=== PATIENT | female | born 1985 | race Caucasian/White ===

== ENCOUNTER 2018-12-23 20:06 | Inpatient (IN) | payer OTHER ==
[~2018-12-23] VITALS: Ht 170.2 cm; Wt 74.0 kg
[2018-12-23 21:58] LABS: BASOPHILS % (AUTO) 0.5 % (0.0-2.0); HEMOGLOBIN 13.9 g/dL (12.0-16.0); LYMPHOCYTES # (AUTO) 1.5 K/uL (1.0-4.8); MONOCYTES # (AUTO) 0.7 K/uL (0.1-1.0); RED BLOOD CELL COUNT(AUTO) 4.25 MIL/uL (4.00-5.20)
[2018-12-23 22:01] LABS: EOSINOPHILS % (AUTO) 2.8 % (1.0-6.0); HEMATOCRIT 41.1 % (36-46); LYMPHOCYTES % (AUTO) 16.5 % (22.0-44.0); MEAN CORPUSCULAR HEMOGLOBIN 32.7 pg (26.0-34.0); MEAN CORPUSCULAR HGB CONC 33.8 G/dL (31.0-37.0); MEAN CORPUSCULAR VOLUME 97 fL (80-100); MONOCYTES % (AUTO) 7.9 % (2.0-9.0); NEUTROPHILS # (AUTO) 6.5 K/uL (1.8-7.7); NEUTROPHILS % (AUTO) 72.3 % (40.0-70.0)
[2018-12-23 22:14] LABS: CARBON DIOXIDE 26 mmol/L (22-29); CHLORIDE 105 mmol/L (98-107); POTASSIUM 4.4 mmol/L (3.5-5.1); SODIUM SERUM 141 mmol/L (136-145)
[2018-12-23 22:15] LABS: ANION GAP 10 mmol/L (8-16); CALCIUM, TOTAL 8.6 mg/dL (8.8-10.5); CREATININE 0.75 mg/dL (0.60-1.30); GLOMERULAR FILTR. RATE CALC > 60 mL/min (>60); GLUCOSE,RANDOM 104 mg/dL (70-110); UREA NITROGEN, BLOOD 7 mg/dL (7-18)
[2018-12-23 22:22] LABS: ALANINE AMINOTRANSFERASE 90 U/L (12-78); ALBUMIN 3.8 g/dL (3.4-5.0); ALKALINE PHOSPHATASE 63 U/L (46-116); ASPARTATE AMINOTRANSFERASE 97 U/L (15-37); BILIRUBIN,TOTAL 0.4 mg/dL (0.1-1.0); HCG,QUANTITATIVE < 1 mIU/mL (0-6); TOTAL PROTEIN, SERUM 7.6 g/dL (6.4-8.2)
[2018-12-23] MEDS ORDERED: IBUPROFEN 600 MG TABLET PO ONE (23:00)
[2018-12-23] MEDS ORDERED: HALOPERIDOL 5 MG TABLET PO PRN (23:00)
[2018-12-23 23:08] LABS: PLATELET COUNT (AUTO) 229 K/uL (150-450)
[2018-12-23 23:27] LABS: AMPHET/METH SCREEN,URINE NEGATIVE (NEGATIVE); BARBITURATE SCREEN, URINE NEGATIVE (NEGATIVE); BENZODIAZEPINES SCREEN,URINE POSITIVE (NEGATIVE); CANNABINOID SCREEN,URINE POSITIVE (NEGATIVE); COCAINE SCREEN,URINE POSITIVE (NEGATIVE); METHADONE SCREEN, URINE NEGATIVE (NEGATIVE); OPIATE SCREEN,URINE NEGATIVE (NEGATIVE)
[2018-12-23 23:31] LABS: PHENCYCLIDINE SCREEN,URINE NEGATIVE (NEGATIVE)
[2018-12-23 23:37] LABS: APPEARANCE,URINE CLOUDY (CLEAR); GLUCOSE, URINE (UA) NEGATIVE (NEGATIVE); KETONES,URINE TRACE mg/dL (NEGATIVE); LEUKOCYTE ESTERASE ,URINE SMALL (NEGATIVE); NITRATE,URINE NEGATIVE (NEGATIVE); OCCULT BLOOD,URINE TRACE (NEGATIVE); PROTEIN,URINE POS 1+ (NEGATIVE); UROBILINOGEN,URINE 0.2 mg/dL (<=1.0)
[2018-12-23 23:38] LABS: BILIRUBIN,URINE PRELIM. POSITIVE (NEGATIVE)
[2018-12-23 23:44] LABS: BACTERIA,URINE Few /HPF (None Seen); RBC,URINE 0-2 /HPF (0-2); SQUAMOUS EPITHELIAL CELL,UR Moderate /LPF (None Seen)
[2018-12-24] VITALS (13 sets, daily range): BP systolic 104–137; BP diastolic 60–90
[2018-12-24] MEDS ORDERED: INFLUENZA VIRUS VACCINE QVS 2019-20 (3YR+)/PF 60 MCG/0.5 ML SYRINGE IM ONE (01:45)
[2018-12-24] MEDS: LORazepam 2 MG TABLET PO PRN ×2 (04:50→17:44)
[2018-12-24 08:43] LABS: CHOL/HDL RATIO 2.2 (3.9-5.7)
[2018-12-24] MEDS ORDERED: NICOTINE 14 MG/24 HOUR PATCH TD PRN (11:30)
[2018-12-24] MEDS ORDERED: PETROLATUM,WHITE 28 GM JELLY TP PRN (11:30)
[2018-12-24] MEDS ORDERED: CloNIDine HCL 0.1 MG TABLET PO PRN (11:30)
[2018-12-24] MEDS ORDERED: MAGNESIUM HYDROXIDE SUSPENSION 30 ML UDCUP PO PRN (11:30)
[2018-12-24] MEDS ORDERED: LOPERAMIDE HCL 2 MG CAPSULE PO PRN (11:30)
[2018-12-24] MEDS ORDERED: ONDANSETRON HCL 4 MG TABLET PO PRN (11:30)
[2018-12-24] MEDS ORDERED: GuaiFENesin/D-METHORPHAN [SUGAR-FREE] 200-20MG/10 ML SYRUP UDCUP PO PRN (11:30)
[2018-12-24] MEDS ORDERED: MAG HYDROX/AL HYDROX/SIMETH ES 30 ML SUSPENSION UDCUP PO PRN (11:30)
[2018-12-24] MEDS ORDERED: DOCUSATE SODIUM 100 MG CAPSULE PO PRN (11:30)
[2018-12-24] MEDS ORDERED: ACETAMINOPHEN 325 MG TABLET PO PRN (11:30)
[2018-12-24] MEDS ORDERED: ALBUTEROL SULFATE HFA 90 MCG/PUFF 8 GM INHALER IH PRN (11:30)
[2018-12-24] MEDS: IBUPROFEN 400 MG TABLET PO PRN (13:47)
[2018-12-24] MEDS: BACITRACIN 28.4 GM OINTMENT TP SCH (17:43)
[2018-12-25] VITALS (7 sets, daily range): BP systolic 100–138; BP diastolic 49–88
[2018-12-25] MEDS: LORazepam 2 MG TABLET PO PRN ×3 (02:03→19:54)
[2018-12-25] MEDS: ZOLPIDEM TARTRATE 10 MG TABLET PO PRN ×2 (02:03→19:54)
[2018-12-25] MEDS: IBUPROFEN 400 MG TABLET PO PRN (02:05)
[2018-12-25] MEDS: BACITRACIN 28.4 GM OINTMENT TP SCH ×2 (08:23→16:16)
[2018-12-25] MEDS: RisperiDONE 1 MG TABLET PO SCH (16:15)
[2018-12-26] MEDS ORDERED: RISP1 PO (02:11)
[2018-12-26 06:39] VITALS: BP 116/90
[2018-12-26 06:40] VITALS: BP 116/90
[2018-12-26 08:36] VITALS: BP 115/75
[2018-12-26] MEDS: RisperiDONE 1 MG TABLET PO SCH (08:50)
[2018-12-26] MEDS: BACITRACIN 28.4 GM OINTMENT TP SCH (08:50)
== END 2018-12-26 13:30 | disposition home or self-care (01) | DRG 885 ==
LOC: EMS 20:06 → 3EI 12-24 01:00 → B3A 12-24 01:01
PROVIDERS: ADMIT Psychiatry & Neurology Psychiatry; ATTEND Psychiatry & Neurology Psychiatry
DX: F31.9 Bipolar disorder, unspecified (principal); R45.851 Suicidal ideations; R74.0 Nonspecific elevation of levels of transaminase and lactic acid dehydrogenase [LDH]; E78.5 Hyperlipidemia, unspecified; F10.10 Alcohol abuse, uncomplicated
CPT/HCPCS: G0480

== ENCOUNTER 2018-12-24 21:42 | Emergency (ER) | payer OTHER ==
[~2018-12-24] VITALS: Ht 170.2 cm; Wt 68.2 kg
[2018-12-24 23:51] VITALS: BP 128/74
[2018-12-26] MEDS ORDERED: RISP1 PO (02:11)
== END 2018-12-25 01:28 | disposition home or self-care (01) ==
LOC: EMS 21:44
DX: G89.29 Other chronic pain (principal); M79.672 Pain in left foot; F25.0 Schizoaffective disorder, bipolar type; F12.90 Cannabis use, unspecified, uncomplicated; F11.90 Opioid use, unspecified, uncomplicated